=== PATIENT | male | born 1990 | race Caucasian/White ===

== ENCOUNTER 2020-02-10 10:06 | Emergency (ER) | payer OTHER ==
[2020-02-10 10:53] LABS: BASOPHILS % (AUTO) 0.7 %; EOSINOPHILS # (AUTO) 0.2 10^3/uL (0.0-0.7); EOSINOPHILS % (AUTO) 2.5 %; HGB - HEMOGLOBIN 15.6 g/dL (14.0-18.0); LYMPHOCYTES # (AUTO) 2.1 10^3/uL (1.5-3.5); LYMPHOCYTES % (AUTO) 34.4 %; MEAN CORPUSCULAR HEMOGLOBIN 31.3 pg (27.0-31.0); MEAN CORPUSCULAR HGB CONC 34.1 g/dL (32.0-36.0); MEAN CORPUSCULAR VOLUME 91.8 fL (80.0-94.0); MEAN PLATELET VOLUME 9.8 fL (7.4-11.4); MONOCYTES # (AUTO) 0.4 10^3/uL (0.0-1.0); MONOCYTES % (AUTO) 6.4 %; NEUTROPHILS # (AUTO) 3.3 10^3/uL (1.5-6.6); NEUTROPHILS % (AUTO) 55.8 %; PLT - PLATELET COUNT 243 10^3/uL (130-450); RED BLOOD COUNT 4.99 10^6/uL (4.70-6.10); RED CELL DISTRIBUTION WIDTH 11.4 % (12.0-15.0)
[2020-02-10 11:09] LABS: ALBUMIN 4.7 g/dL (3.2-5.5); ALBUMIN/GLOBULIN RATIO 1.6 (1.0-2.2); BILIRUBIN,TOTAL 0.5 mg/dL (0.2-1.0); CALCIUM 9.1 mg/dL (8.5-10.3); CREATININE 0.8 mg/dL (0.6-1.2); TOTAL PROTEIN 7.7 g/dL (6.7-8.2)
--- NOTE | 2020-02-10 11:48 | ED Physician Documentation ---
PD HPI CHEST PAIN - Stated complaint Stated Complaint: CHEST PX - Chief complaint Chief Complaint: Cardiac - History obtained from History obtained from: Patient - History of Present Illness Timing - onset: How many weeks ago (2) Timing - onset during: Light activity Timing - duration: Weeks (2) Timing - details: Gradual onset, Still present, Waxing and waning Pain level max: 7 Pain level now: 2 Quality: Pressure Location: Substernal, Left chest Radiation: Left upper extremity Improved by: Rest Worsened by: Inspiration Associated symptoms: Shortness of air. 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 He does have some shortness of breath with exertion that is slightly worse than usual. Review of Systems Constitutional: denies: Fever, Chills Eyes: denies: Decreased vision Ears: denies: Ear pain Nose: denies: Rhinorrhea / runny nose, Congestion Throat: denies: Sore throat Cardiac: reports: Chest pain / pressure. denies: Palpitations, Pedal edema, Calf pain Respiratory: reports: Dyspnea. denies: Cough, Wheezing GI: denies: Abdominal Pain, Nausea, Vomiting, Constipation, Diarrhea : denies: Dysuria, Frequency PD PAST MEDICAL HISTORY - Past Medical History Past Medical History: No - Past Surgical History Past Surgical History: No - Present Medications Home Medications: Ambulatory Orders Medication Instructions Recorded Confirmed Meloxicam [Mobic] 7.5 mg PO BID PRN #20 tablet 02/10/20 - Allergies Allergies/Adverse Reactions: Allergies Allergy/AdvReac Type Severity Reaction Status Date / Time No Known Drug Allergies Allergy Verified 02/10/20 10:34 - Social History Does the pt smoke?: No Smoking Status: Never smoker Does the pt drink ETOH?: Yes Does the pt have substance abuse?: No PD ED PE NORMAL - Vitals Vital signs reviewed: Yes (normal) - General General: Alert and oriented X 3, No acute distress, Well developed/nourished - HEENT HEENT: Atraumatic, PERRL, EOMI - Neck Neck: Supple, no meningeal sign, No bony TTP - Cardiac Cardiac: RRR, No murmur - Respiratory Respiratory: No respiratory distress, Clear bilaterally, Other (non tender chest wall ) - Abdomen Abdomen: Normal bowel sounds, Soft, Non tender, Non distended, No organomegaly - Back Back: No CVA TTP, No spinal TTP - Derm Derm: Normal color, Warm and dry, No rash - Extremities Extremities: No deformity, No edema - Neuro Neuro: Alert and oriented X 3, park guard 2-12 intact, No motor deficit, No sensory deficit, Normal speech Eye Opening: Spontaneous Motor: Obeys Commands Verbal: Oriented GCS Score: 15 - Psych Psych: Normal mood, Normal affect Results - Vitals Vitals: Vital Signs - 24 hr 02/10/20 02/10/20 02/10/20 10:32 12:34 12:42 Temperature 36.4 C L Heart Rate 60 50 L 53 L Respiratory 20 17 14 Rate Blood Pressure 124/80 133/80 H 109/71 O2 Saturation 98 98 98 02/10/20 12:50 Temperature Heart Rate 60 Respiratory 18 Rate Blood Pressure 111/70 O2 Saturation 99 Oxygen O2 Source Room air - EKG (time done) 1023 Rate: Rate (enter#) (56) Rhythm: NSR Ischemia: Normal ST segments Compare to prior EKG: Old EKG unavailable Computer interpretation: Agree with computer - Labs Labs: Laboratory Tests 02/10/20 02/10/20 02/10/20 10:40 10:50 10:50 WBC 6.0 RBC 4.99 Hgb 15.6 Hct 45.8 MCV 91.8 MCH 31.3 H MCHC 34.1 RDW 11.4 L Plt Count 243 MPV 9.8 Neut # (Auto) 3.3 Lymph # (Auto) 2.1 [place] # (Auto) 0.4 Eos # (Auto) 0.2 Baso # (Auto) 0.0 Absolute Nucleated RBC 0.00 Nucleated RBC % 0.0 D-Dimer 250.5 Sodium 137 Potassium 4.3 Chloride 102 Carbon Dioxide 25 Anion Gap 10.0 BUN 11 Creatinine 0.8 Estimated GFR (MDRD) 114 Glucose 91 Calcium 9.1 Total Bilirubin 0.5 AST 20 ALT 16 Alkaline Phosphatase 53 Troponin I High Sens Total Protein 7.7 Albumin 4.7 Globulin 3.0 Albumin/Globulin Ratio 1.6 Lipase 28 02/10/20 10:50 WBC RBC Hgb Hct MCV MCH MCHC RDW Plt Count MPV Neut # (Auto) Lymph # (Auto) [place] # (Auto) Eos # (Auto) Baso # (Auto) Absolute Nucleated RBC Nucleated RBC % D-Dimer Sodium Potassium Chloride Carbon Dioxide Anion Gap BUN Creatinine Estimated GFR (MDRD) Glucose Calcium Total Bilirubin AST ALT Alkaline Phosphatase Troponin I High Sens < 2.3 L Total Protein Albumin Globulin Albumin/Globulin Ratio Lipase - Rads (name of study) chest Radiology: EMP read contemporaneously (unremarkable chest) PD MEDICAL DECISION MAKING - ED course Complexity details: reviewed results, re-evaluated patient, considered differential, d/w patient ED course: 29 y/o male with pleuritic chest pain with radiation to the left arm has negative diagnostics including negative D-dimer. He is treated with decadron and toradal and we will provide some mobic for use at home. Departure - Departure Disposition: 01 Home, Self Care Clinical Impression: Pleurisy Condition: Stable Instructions: ED Chest Pain Pleurisy Follow-Up: ARINA DELEON MD [Primary Care Provider] - Prescriptions: Meloxicam [Mobic] 7.5 mg PO BID PRN #20 tablet PRN Reason: Pain Discharge Date/Time: 02/10/20 12:50
[2020-02-10] MEDS ORDERED: DEXAMETHASONE 10 MG/ML VIAL PO STA (12:42)
[2020-02-10] MEDS ORDERED: KETOROLAC 30 MG/ML VIAL IVP STA (12:42)
[2020-02-10] MEDS ORDERED: CHERRY SYRUP 10 ML UDC PO ONE (12:42)
[2020-02-10 12:51] VITALS: BP 111/70
--- NOTE | 2020-02-10 17:55 | XRAY Report ---
PROCEDURE: Chest 1 View X-Ray INDICATIONS: Chest pain TECHNIQUE: One view of the chest was acquired. COMPARISON: None FINDINGS: Surgical changes and devices: None. Lungs and pleura: No pleural effusions or pneumothorax. Lungs are clear. Mediastinum: Mediastinal contours appear normal. Heart size is normal. Bones and chest wall: No suspicious bony lesions. Overlying soft tissues appear unremarkable. IMPRESSION: No acute cardiopulmonary disease process. Reviewed by: Apolonia Jacobson MD, PhD on 02/10/2020 5:54 PM [facility] Approved by: Apolonia Jacobson MD, PhD on 02/10/2020 5:54 PM [facility] Station ID: [id number]
== END 2020-02-10 12:50 | disposition home or self-care (01) ==
LOC: ED 10:06
DX: R09.1 Pleurisy (principal); Z20.828 Contact with and (suspected) exposure to other viral communicable diseases
CPT/HCPCS: 36415; 80053; 83690; 84484; 85025; 85379; 93005; 96374; 99284

== ENCOUNTER 2020-02-25 16:36 | Emergency (ER) | payer OTHER ==
--- NOTE | 2020-02-25 17:04 | XRAY Report ---
PROCEDURE: Chest 1 View X-Ray INDICATIONS: Chest Pain TECHNIQUE: One view of the chest was acquired. COMPARISON: None. FINDINGS: Surgical changes and devices: None. Lungs and pleura: No pleural effusions or pneumothorax. Lungs are clear. Mediastinum: Mediastinal contours appear normal. Heart size is normal. Bones and chest wall: No suspicious bony lesions. Overlying soft tissues appear unremarkable. IMPRESSION: No acute cardiopulmonary pathology. Reviewed by: Fredrick Chapman MD on 02/25/2020 5:03 PM [facility] Approved by: Fredrick Chapman MD on 02/25/2020 5:03 PM [facility] Station ID: [id number]
[2020-02-25 17:08] LABS: BASOPHILS % (AUTO) 0.5 %; EOSINOPHILS # (AUTO) 0.1 10^3/uL (0.0-0.7); EOSINOPHILS % (AUTO) 1.5 %; HCT - HEMATOCRIT 45.5 % (42.0-52.0); HGB - HEMOGLOBIN 15.8 g/dL (14.0-18.0); LYMPHOCYTES # (AUTO) 2.3 10^3/uL (1.5-3.5); LYMPHOCYTES % (AUTO) 28.1 %; MEAN CORPUSCULAR HEMOGLOBIN 31.3 pg (27.0-31.0); MEAN CORPUSCULAR HGB CONC 34.7 g/dL (32.0-36.0); MEAN CORPUSCULAR VOLUME 90.3 fL (80.0-94.0); MEAN PLATELET VOLUME 9.6 fL (7.4-11.4); MONOCYTES # (AUTO) 0.6 10^3/uL (0.0-1.0); MONOCYTES % (AUTO) 6.8 %; NEUTROPHILS # (AUTO) 5.2 10^3/uL (1.5-6.6); PLT - PLATELET COUNT 273 10^3/uL (130-450); RED BLOOD COUNT 5.04 10^6/uL (4.70-6.10); RED CELL DISTRIBUTION WIDTH 11.5 % (12.0-15.0); WHITE BLOOD COUNT 8.3 x10^3/uL (4.8-10.8)
[2020-02-25 17:22] LABS: ALBUMIN 4.5 g/dL (3.2-5.5); ALBUMIN/GLOBULIN RATIO 1.4 (1.0-2.2); BILIRUBIN,TOTAL 0.7 mg/dL (0.2-1.0); CALCIUM 9.3 mg/dL (8.5-10.3); CREATININE 0.9 mg/dL (0.6-1.2); POTASSIUM 3.7 mmol/L (3.5-5.0); TOTAL PROTEIN 7.7 g/dL (6.7-8.2)
--- NOTE | 2020-02-25 18:32 | ED Physician Documentation ---
PD HPI CHEST PAIN - Stated complaint Stated Complaint: CP/SOA/LT ARM NUMB - Chief complaint Chief Complaint: Cardiac - History obtained from History obtained from: Patient - History of Present Illness Timing - onset: How many weeks ago (4) Timing - onset during: Rest, Light activity. No: Eating, Emotional event Timing - duration: Hours Timing - details: Gradual onset, Intermittant (occasional pain left chest to left shoulder for few hours at a time. Had it more consistent a week ago and seen in ER with normal CXR, ECG, labs. got decadron and toradol and was improved without symptoms fore several days. Now couple days symptoms again and worse today, with left vision blurry too.) Quality: Aching, Sharp, Pain Location: Left chest Radiation: Neck, Left upper extremity Improved by: No: Rest Worsened by: No: Exertion, Inspiration Associated symptoms: Feeling faint / dizzy. No: Shortness of air, Diaphoresis, Nausea, Palpitations Similar symptoms before: No diagnosis Recently seen: Clinic, Emergency Dept, Other (has appt with Cardiology appt next week.) Review of Systems Constitutional: denies: Fever, Chills Nose: denies: Rhinorrhea / runny nose, Congestion Throat: denies: Sore throat Respiratory: denies: Dyspnea, Cough, Wheezing GI: denies: Abdominal Pain, Nausea, Vomiting Skin: denies: Rash, Lesions PD PAST MEDICAL HISTORY - Past Medical History Cardiovascular: None Respiratory: None Neuro: None Endocrine/Autoimmune: None GI: None : None HEENT: None Psych: None Musculoskeletal: None Derm: None - Past Surgical History Past Surgical History: No - Present Medications Home Medications: Ambulatory Orders Medication Instructions Recorded Confirmed No Known Home Medications 02/25/20 02/25/20 - Allergies Allergies/Adverse Reactions: Allergies Allergy/AdvReac Type Severity Reaction Status Date / Time No Known Drug Allergies Allergy Verified 02/25/20 16:42 - Social History Does the pt smoke?: No Smoking Status: Never smoker Does the pt drink ETOH?: Yes Does the pt have substance abuse?: No - Immunizations Immunizations are current?: Yes PD ED PE NORMAL - Vitals Vital signs reviewed: Yes - General General: Alert and oriented X 3, No acute distress, Well developed/nourished - HEENT HEENT: Moist mucous membranes, Pharynx benign - Neck Neck: Supple, no meningeal sign, No adenopathy - Cardiac Cardiac: RRR, No murmur - Respiratory Respiratory: Clear bilaterally, Other (no chestwall tenderness) - Abdomen Abdomen: Soft, Non tender - Derm Derm: Normal color, Warm and dry - Extremities Extremities: No tenderness to palpate, Normal ROM s pain, No edema, No calf tenderness / cord Results - Vitals Vitals: Vital Signs - 24 hr 02/25/20 02/25/20 02/25/20 16:43 18:27 20:00 Temperature 36.6 C 36.4 C L Heart Rate 68 80 71 Respiratory 16 16 14 Rate Blood Pressure 137/94 H 135/84 H 119/90 H O2 Saturation 98 99 98 Oxygen O2 Source Room air - EKG (time done) 16:51 Rate: Rate (enter#) (65) Rhythm: NSR [place]: Normal Intervals: Normal [place] QRS: Normal Ischemia: Normal ST segments. No: ST elevation c/w ischemia, ST depression - Labs Labs: Laboratory Tests 02/25/20 02/25/20 02/25/20 17:03 17:03 17:03 WBC 8.3 RBC 5.04 Hgb 15.8 Hct 45.5 MCV 90.3 MCH 31.3 H MCHC 34.7 RDW 11.5 L Plt Count 273 MPV 9.6 Neut # (Auto) 5.2 Lymph # (Auto) 2.3 [place] # (Auto) 0.6 Eos # (Auto) 0.1 Baso # (Auto) 0.0 Absolute Nucleated RBC 0.00 Nucleated RBC % 0.0 Sodium 142 Potassium 3.7 Chloride 101 Carbon Dioxide 30 Anion Gap 11.0 BUN 14 Creatinine 0.9 Estimated GFR (MDRD) 100 Glucose 96 Calcium 9.3 Total Bilirubin 0.7 AST 20 ALT 20 Alkaline Phosphatase 56 Troponin I High Sens < 2.3 L Total Protein 7.7 Albumin 4.5 Globulin 3.2 Albumin/Globulin Ratio 1.4 Lipase 26 - Rads (name of study) chest xray Radiology: Prelim report reviewed (normal), See rad report chest angio Radiology: Prelim report reviewed (no PE. Normal thoracic aorta), See rad report PD MEDICAL DECISION MAKING - ED course Complexity details: reviewed old records, reviewed results, considered differential (has had normal cxr AND TROP, ALSO NEG dDMIER LAST WEEK. However, had some pain today chest to arm numbness and feeling left visual change. Consider vascular, such as aortic dissection. Got CT angio. ), d/w patient Departure - Departure Disposition: 01 Home, Self Care Clinical Impression: Pleurisy Condition: Good Instructions: ED Chest Pain Pleurisy Follow-Up: ARINA DELEON MD [Primary Care Provider] - Discharge Date/Time: 02/25/20 20:55
[2020-02-25] MEDS ORDERED: DEXAMETHASONE 10 MG/ML VIAL IVP STA (18:52)
[2020-02-25] MEDS ORDERED: KETOROLAC 30 MG/ML VIAL IVP STA (18:52)
[2020-02-25] MEDS ORDERED: IOVERSOL 320 100 ML VIAL IVP ONE ×2 (19:27→20:10)
--- NOTE | 2020-02-25 19:56 | CT Report ---
PROCEDURE: ANGIO CHEST W/WO INDICATIONS: left chest pain to shoulder and neck CONTRAST: IV CONTRAST: Optiray 320 ml: 80 PO CONTRAST: *NO PO CONTRAST TECHNIQUE: After the administration of intravenous contrast, 2 mm thick sections acquired from the pulmonary api gin to the posterior costophrenic angles. 3-dimensional maximum intensity projection (MIP) coronal a nd sagittal reformats were then acquired through the thorax. For radiation dose reduction, the follow ing was used: automated exposure control, adjustment of mA and/or kV according to patient size. COMPARISON: None FINDINGS: Image quality: Excellent. Pulmonary arteries: Pulmonary arteries are normal in size, and demonstrate no intraluminal filling d efects to suggest central pulmonary embolism. Lungs and pleura: Lungs are clear. No pleural effusions or pneumothorax. Central and peripheral ai rways are patent. Mediastinum: Heart size is normal, without pericardial effusion. No mediastinal or hilar adenopathy . Thoracic aorta is normal in caliber and enhancement. Esophagus is normal in caliber, without hiat al hernia. Bones and chest wall: No suspicious bony lesions. Ribs and thoracic spine appear intact throughout. The thyroid is normal. No axillary or supraclavicular adenopathy. Abdomen: Visualized upper abdominal solid organs appear normal in the early arterial phase of enhanc ement. IMPRESSION: 1. No pulmonary embolism. 2. No acute abnormality of the chest. Reviewed by: Nagi De La Vega on 02/25/2020 7:55 PM PST Approved by: Nagi De La Vega on 02/25/2020 7:55 PM PST Station ID: [id number]
[2020-02-25 20:21] VITALS: BP 119/90
== END 2020-02-25 20:55 | disposition home or self-care (01) ==
LOC: ED 16:36
DX: R09.1 Pleurisy (principal)
CPT/HCPCS: 36415; 71045; 71275; 80053; 83690; 84484; 85025; 93005; 96374; 99284; Q9967

== ENCOUNTER 2020-04-28 06:52 | Outpatient (CLI) | payer OTHER ==
--- NOTE | 2020-04-28 09:06 | MRI Report ---
PROCEDURE: Cervical Spine W/O INDICATIONS: CHEST PAIN TECHNIQUE: Noncontrast sagittal T1 spin echo and T2 fast spin echo, sagittal STIR, foraminal oblique sagittal T2 fast spin echo, and axial gradient echo or T2 fast spin echo through the cervical spine. COMPARISON: None. FINDINGS: Image quality: Excellent. Alignment and Curvature: There is loss of normal cervical lordosis. Bone Marrow: Marrow demonstrates normal overall signal. Spinal Cord: Visualized spinal cord has normal size and signal. No cerebellar tonsillar herniation. Paraspinous Soft Tissues: No paravertebral masses. Prevertebral soft tissues are normal in thicknes s. C2-C3: Normal in appearance. C3-C4: Normal in appearance. C4-C5: Normal in appearance. C5-C6: Minimal disc desiccation. Mild facet and uncovertebral hypertrophy bilaterally. No significan t canal stenosis. Mild right foraminal stenosis. No left foraminal stenosis. C6-C7: Mild facet and uncovertebral hypertrophy bilaterally. No canal stenosis. Mild bilateral jarret inal stenosis. C7-T1: Normal in appearance. IMPRESSION: Mild mid/lower cervical facet osteoarthritis and uncovertebral hypertrophy, causing mild foraminal st enoses. No evidence of neural impingement. Reviewed by: Rocio Barksdale MD on 04/28/2020 9:04 AM PST Approved by: Rocio Barksdale MD on 04/28/2020 9:04 AM PST Station ID: [id number]
== END 2020-04-28 06:53 | disposition home or self-care (01) ==
LOC: DI 06:52
PROVIDERS: ATTEND Student in an Organized Health Care Education/Training Program
DX: R07.9 Chest pain, unspecified (principal); M47.812 Spondylosis without myelopathy or radiculopathy, cervical region